=== PATIENT | female | born 1970 | race Caucasian/White ===

== ENCOUNTER 2024-03-09 16:49 | Emergency (ER) | payer SELFPAY ==
[2024-03-09] MEDS ORDERED: Sodium Chloride 0.9% 2.5 ML Syringe FLUSH PRN (16:55)
[2024-03-09] MEDS ORDERED: Sodium Chloride 0.9% 10 ML Syringe FLUSH PRN (16:55)
[2024-03-09] MEDS: Albuterol/Ipratropium 3.0-0.5 MG/3 ML Neb Soln NEB ONE ×2 (17:31→18:32)
[2024-03-09 18:04] LABS: BASOPHILS ABSOLUTE AUTO 0.01 K/uL (0.00-0.20); BASOPHILS PERCENT AUTO 0.2 % (0.0-1.0); EOSINOPHILS ABSOLUTE AUTO 0.39 K/uL (0.00-0.45); EOSINOPHILS PERCENT AUTO 7.2 % (0.0-6.0); HEMATOCRIT 46.6 % (37.0-47.0); HEMOGLOBIN 15.2 g/dL (12.0-16.0); IMMATURE GRAN ABSOLUTE AUTO 0.01 K/uL (0.00-0.05); IMMATURE GRAN PERCENT AUTO 0.2 % (0.0-0.4); LYMPHOCYTES ABSOLUTE AUTO 2.19 K/uL (1.00-4.80); LYMPHOCYTES PERCENT AUTO 40.3 % (24.0-44.0); MEAN CORPUSCULAR HEMOGLOBIN 28.6 pg (28.0-32.0); MEAN CORPUSCULAR HGB CONC 32.6 g/dL (32.0-36.0); MEAN CORPUSCULAR VOLUME 87.6 fL (83.0-99.0); MEAN PLATELET VOLUME 10.9 fL (9.4-12.3); MONOCYTES ABSOLUTE AUTO 0.59 K/uL (0.00-0.80); MONOCYTES PERCENT AUTO 10.8 % (0.0-8.0); NEUTROPHILS ABSOLUTE AUTO 2.25 K/uL (1.80-7.70); NEUTROPHILS PERCENT AUTO 41.3 % (41.0-71.0); PLATELET COUNT,PLT 134 K/uL (150-400); RED BLOOD CELL COUNT 5.32 M/uL (4.10-5.30); WHITE BLOOD CELL COUNT,WBC 5.44 K/uL (3.9-11.3)
[2024-03-09 18:30] LABS: A/G RATIO 0.9 (0.9-1.6); ALANINE AMINOTRANSFERASE,ALT 66 IU/L (14-63); ALBUMIN 3.3 g/dL (3.4-5.0); ALKALINE PHOSPHATASE 80 U/L (46-116); ASPARTATE AMNIOTRANSFERASE,AST 56 IU/L (15-37); BILIRUBIN TOTAL 0.3 mg/dL (0.2-1.0); BLOOD UREA NITROGEN,BUN 18 mg/dL (7.0-18.0); CALCIUM 8.9 mg/dL (8.5-10.1); CARBON DIOXIDE,CO2 30.4 mmol/L (21.0-32.0); CHLORIDE,CL 104 mmol/L (98-107); CREATININE 0.9 mg/dL (0.6-1.0); EST CRCL DRUG DOSING (CG) 54.55 mL/min; ESTIMATED GFR 76 mL/min (>60); GLUCOSE RANDOM 111 mg/dL (74-106); POTASSIUM,K 3.7 mmol/L (3.5-5.1); PROTEIN TOTAL,TP 7.2 g/dL (6.4-8.2); SODIUM,NA 142 mmol/L (136-145)
[2024-03-09] MEDS: Acetaminophen 325 MG Tab PO ONE (18:32)
[2024-03-09] MEDS: Azithromycin 250 MG Tab PO ONE (19:06)
== END 2024-03-09 19:14 | disposition home or self-care (01) ==
LOC: EDBD 16:49 → MW.ED 16:49
DX: R06.02 Shortness of breath (principal); R05.9 Cough, unspecified; M79.10 Myalgia, unspecified site; Z75.8 Other problems related to medical facilities and other health care; Z79.899 Other long term (current) drug therapy
CPT/HCPCS: 36415; 71046; 80053; 84484; 85025; 87428; 93005; 94640; 99285; A9270; J7620-GY